=== PATIENT | female | born 1960 | race Caucasian/White ===

== ENCOUNTER → 2017-07-22 | Day surgery (SDC) | payer OTHER ==
[~2017-07-22] VITALS: Ht 170.2 cm; Wt 98.2 kg
[~2017-07-22] MED LIST: ALLEGRA180 MG PO; ENTOCORT 3 MG3 MG PO; METAMUCIL MULT660 GM PO; PROTONIX40 MG PO
== END ==
LOC: GPOC 07-16 11:00 → GEND 07:40 → GPOC 11:00
PROC: 0DB98ZX Excision of Duodenum, Via Natural or Artificial Opening Endoscopic, Diagnostic (ICD-10-PCS; principal; 2017-07-22)
PROC: 0DB68ZX Excision of Stomach, Via Natural or Artificial Opening Endoscopic, Diagnostic (ICD-10-PCS; 2017-07-22)
PROC: 0DBB8ZX Excision of Ileum, Via Natural or Artificial Opening Endoscopic, Diagnostic (ICD-10-PCS; 2017-07-22)
PROC: 0DBE8ZX Excision of Large Intestine, Via Natural or Artificial Opening Endoscopic, Diagnostic (ICD-10-PCS; 2017-07-22)
PROC: 0DBN8ZX Excision of Sigmoid Colon, Via Natural or Artificial Opening Endoscopic, Diagnostic (ICD-10-PCS; 2017-07-22)
DX: K57.90 Diverticulosis of intestine, part unspecified, without perforation or abscess without bleeding (principal); K52.9 Noninfective gastroenteritis and colitis, unspecified; K21.9 Gastro-esophageal reflux disease without esophagitis; F93.0 Separation anxiety disorder of childhood
CPT/HCPCS: J2001; J7030